=== PATIENT | male | born 1945 | race African-American/Black ===

== ENCOUNTER 2023-01-25 19:53 | Emergency (ER) | payer OTHER ==
[2023-01-25 20:28] VITALS: BP 117/73; PULSE 84; RESP 16; TEMP 98.1; BMI 22.2
== END 2023-01-25 20:58 | disposition home or self-care (01) ==
LOC: FER 19:53
DX: Z04.1 Encounter for examination and observation following transport accident (principal)
CPT/HCPCS: 99282-25